=== PATIENT | male | born 1945 | race African-American/Black ===

== ENCOUNTER 2022-04-11 12:03 | Emergency (ER) | payer MEDICARE, OTHER ==
[~2022-04-11] VITALS: Ht 172.7 cm; Wt 59.0 kg
[2022-04-11 13:20] LABS: BASOPHILS % 0.6 % (0.0-2.0); EOSINOPHILS % 2.2 % (0.0-5.0); HEMATOCRIT. 33.6 % (42.0-52.0); HEMOGLOBIN. 10.9 g/dL (14.0-18.0); LYMPHOCYTES % 29.8 % (20.0-50.0); MEAN CORPUSCULAR HEMOGLOBIN 24.8 pg (28.0-32.0); MEAN CORPUSCULAR VOLUME 76.2 fL (80.0-94.0); MEAN PLATELET VOLUME 8.3 fl (7.4-10.4); MONOCYTES % 10.2 % (2.0-8.0); NEUTROPHILS % 57.2 % (40.0-76.0); PLATELET 148 x1000/uL (130-400); RED BLOOD CELL COUNT 4.41 mill/uL (4.7-6.1); RED CELL DISTRIBUTION WIDTH 16.6 % (11.6-14.6)
[2022-04-11 13:29] LABS: CHLORIDE 107 mEq/L (98-107)
[2022-04-11] MEDS ORDERED: KETOROLAC 15MG/ML VIAL IV ONE (13:30)
[2022-04-11] MEDS ORDERED: SODIUM CHLORIDE 0.9% 1,000 ML IV ONE (14:30)
[2022-04-11 17:50] VITALS: BP 150/59
[2022-04-11] MEDS ORDERED: DOCU-138 MT (18:19)
[2022-04-11] MEDS ORDERED: POLY17PO3 MT (18:19)
[2022-04-11] MEDS ORDERED: IOHEXOL-300 100 ML BOTTLE ONE (20:02)
== END 2022-04-11 18:48 | disposition home or self-care (01) ==
LOC: ER 12:53
DX: R10.31 Right lower quadrant pain (principal); D64.9 Anemia, unspecified; I10 Essential (primary) hypertension
CPT/HCPCS: 36415; 71045; 74177; 80053; 83605; 83690; 84484; 85025; 93005; 96361; 96374; 99285; J1885; J7030; Q9967